=== PATIENT | male | born 1990 | race African-American/Black ===

== ENCOUNTER 2017-10-02 15:49 | Emergency (ER) | payer OTHER ==
[2017-10-02] MEDS ORDERED: Ibuprofen 800 MG TAB ONE (16:49)
--- NOTE | 2017-10-02 17:32 | RAD ---
4 VIEWS RIGHT ELBOW: Date: 10/02/17 HISTORY: Injury. Elbow laceration. Glass picture fell on arm. COMPARISON: None. FINDINGS: Multiple radiopaque foreign bodies are noted along the posterior radial soft tissues. No joint effusi on. No fracture. IMPRESSION: Multiple foreign bodies. POS: [facility]
--- NOTE | 2017-10-02 18:51 | RAD ---
LEFT ELBOW TWO VIEWS: History: Foreign body removal. Comparison: 10-02-17 FINDINGS: Multiple foreign bodies have been removed. However, there does appear to remain a single 4 mm foreign body. IMPRESSION: Single 4 mm foreign body does remain. POS: [facility]
== END 2017-10-02 18:41 | disposition home or self-care (01) ==
LOC: ERS 15:49
DX: S51.822A Laceration with foreign body of left forearm, initial encounter (principal); F17.210 Nicotine dependence, cigarettes, uncomplicated; W20.8XXA Other cause of strike by thrown, projected or falling object, initial encounter

== ENCOUNTER 2017-10-09 16:14 | Emergency (ER) | payer OTHER, SELFPAY | END 2017-10-09 18:40 | disposition home or self-care (01) | LOC: ERS 16:14 | DX: S51.012D Laceration without foreign body of left elbow, subsequent encounter (principal); F17.210 Nicotine dependence, cigarettes, uncomplicated | CPT/HCPCS: 99406 ==

== ENCOUNTER 2020-04-06 08:09 | Outpatient (CLI) | payer BC, OTHER ==
[2020-04-06 13:35] LABS: Bacteria/HPF None Seen HPF (None Seen); Bilirubin Negative (Negative); Blood, Urine Negative (Negative); Clarity Clear (Clear); Glucose, Urine (Dipstick) Normal (Negative); Leukocyte Negative Leu/uL (Negative); Nitrite Negative (Negative); Protein, Urine (Dipstick) Negative (Neg-Trace); RBC/HPF 0-3 HPF (0-3); Squamous Epithelial None Seen HPF (0-3); Urobilinogen Normal mg/dL (Less than 2)
[2020-04-06 13:36] LABS: Hemoglobin 15.5 g/dL (14.0-18.0); Mean Corpuscular HGB CONC 34.2 g/dL (32.0-36.0); Mean Corpuscular Hemoglobin 30.5 pg (27.0-31.0); Mean Corpuscular Volume 89.1 fL (78.0-98.0); Mean Platelet Volume 8.3 fL (7.4-10.4); Platelet Count 281 thou/uL (130-400); RBC Distribution Width 12.2 % (11.5-14.5); White Blood Cell (WBC) Count 8.4 thou/uL (4.8-10.8)
[2020-04-06 14:12] LABS: PTT 29.4 sec (22.9-36.1); Prothrombin Time 12.8 sec (12.0-14.7)
[2020-04-06 15:36] LABS: Anion Gap 14 mmol/L (10-20); BUN (Urea Nitrogen) 16 mg/dL (8.9-20.6); Calc. Creatinine Clearance 0 mL/min (70-130); Calcium 9.3 mg/dL (7.8-10.44); Carbon Dioxide 25 mmol/L (22-29); Chloride 105 mmol/L (98-107); Estimated GFR-MDRD Greater than 90; Glucose 97 mg/dL (70-105); Potassium 4.9 mmol/L (3.5-5.1); Sodium 139 mmol/L (136-145)
[2020-04-06 20:17] LABS: SARS-CoV-2 MS2 Positive; SARS-CoV-2 N Gene Negative; SARS-CoV-2 S Gene Negative; SARS-CoV-2 orf1ab Negative
== END 2020-04-06 08:10 | disposition home or self-care (01) ==
LOC: LABBT 08:09
PROVIDERS: ATTEND Urology
DX: Z01.812 Encounter for preprocedural laboratory examination (principal); Z11.59 Encounter for screening for other viral diseases; N47.1 Phimosis; N50.0 Atrophy of testis; N46.9 Male infertility, unspecified
CPT/HCPCS: 80048; 81001; 85027; 85610; 85730; 87086; 87635; 93005; 93010; U0003